=== PATIENT | male | born 1960 | race Caucasian/White ===

== ENCOUNTER 2025-01-08 10:40 | Emergency (ER) | payer OTHER, SELFPAY ==
[2025-01-08 11:00] VITALS: BP 169/127
--- NOTE | 2025-01-08 11:13 | ED.GENMED ---
History of Present Illness
General
Chief Complaint: Flank Pain
Source: patient and spouse
Time Seen by Provider: 01/08/25 11:07
History of Present Illness
History of Present Illness:
64-year-old male with past medical history of hyperlipidemia and previous kidney stones presenting to the emergency department for sudden onset of severe right-sided flank pain, nausea and vomiting that feels similar to previous episodes of kidney
stones, pain described to be right flank, constant, sharp, 10 out of 10. Did not take anything for symptoms prior to arrival. Denies any fevers, chills, rigors. Patient was scheduled to have lithotripsy for the last time he had a stone however
states the stone passed prior to the procedure and did not end up going through with the procedure.
Past History
Past History
ED Past Medical History: Hypercholesterolemia and Other (Kidney stones )
ED Past Surgical History: Orthopedic
Social History
Tobacco: Non-smoker
Alcohol: Occasional
Drug: None
Personal:
Living: with family
Review of Systems
Review of Systems
All Other Systems: ROS reviewed and negative except as documented in HPI and ROS
Phy Exam
Physical Exam
Physical Exam:
GENERAL: Alert , appears significantly uncomfortable, moaning, unable to stand up or lay flat
EYE: clear conjunctiva b/l
HEAD: NCAT
ENT: o/p clr, mmm.
CARDIAC: Regular rate and rhythm
LUNGS: Clear breath sounds bilaterally, no acute respiratory distress, no wheezes/rales/rhonchi
ABDOMEN: Soft, mild right flank tenderness, no r/t
NEUROLOGICAL: Alert and oriented
SKIN: Warm and dry, skin intact.
MUSCULOSKELETAL: well perfused.
PSYCH: Normal and appropriate interaction.
Scores
Heart Failure Risk
Heart Failure Risk Score: Not Applicable
Heart Score for Chest Pain Patients
STEMI patient?: Not applicable
Withdrawal Assessment of Alcohol
Withdrawal Assessment Completed?: Not applicable
Course
Orders/Labs/Results
Orders:
Orders
01/08/25 11:07
0.9% Sodium Chloride 1000 ml [Nss] 1,000 ml IV BOLUS
Ketorolac [Toradol] 30 mg IV NOW STA
Ondansetron Injectable [Zofran] 4 mg IV NOW STA
01/08/25 11:08
Ketorolac [Toradol] 30 mg .ROUTE .STK-MED ONE
Ondansetron Injectable [Zofran] 4 mg .ROUTE .STK-MED ONE
01/08/25 11:15
Complete Blood Count/With Diff Urgent
Comprehensive Metabolic Panel Urgent
Lipase Urgent
01/08/25 11:20
HYDROmorphone [Dilaudid] 1 mg IV NOW STA
01/08/25 11:21
CT Abd/pel Without Iv Or Oral Urgent
Comment:
Reason For Exam: sudden right flank pain, hx stones
01/08/25 12:00
HYDROmorphone [Dilaudid] 0.5 mg IV NOW STA
Abnormal Lab Results
01/08/25
11:15
MCH 31.9 H pg
(27.0-31.0)
Monocytes % 9.4 H %
(1.7-9.3)
Chloride 108 H mmol/L
(98-107)
BUN 26 H mg/dl
(9-20)
Glucose 130 H mg/dl
(70-99)
01/08/25 11:15
01/08/25 11:15
Vital Signs
Initial and Last Documented VS:
Initial Vital Signs
Temp Pulse Resp Pulse Ox
97.8 F 65 16 98
01/08/25 10:44 01/08/25 10:44 01/08/25 10:44 01/08/25 10:44
Last Documented Vital Signs
Temp Pulse Resp BP Pulse Ox
98.6 F 86 20 136/81 99
01/08/25 11:19 01/08/25 13:15 01/08/25 13:15 01/08/25 13:15 01/08/25 13:15
MDM/Problems Addressed
Differential Diagnosis Includes:
Renal/ureteral colic, dissection, urinary tract infection/pyelonephritis
MDM/Problems Addressed:
64-year-old male presenting to the ER for evaluation of sudden onset right-sided flank pain that began approximately 30 minutes prior to arrival to the emergency department. Symptoms feel exactly the same as previous kidney stone. Patient vomited
once on the way to the ER. Did not take any medications prior to arrival. Toradol Zofran and fluids ordered. Labs ordered. CT scan ordered.
*Radiology
Radiology exam reviewed: radiology read reviewed
*Pulse Oximetry
Patient hypoxic: no
*Critical Care Note
Total Time (30-74mins, 75-104mins- exclusive of procedures): Not Applicable
Patient Management
Escalation/DeEscalation of care consider admission/obs:
Patient CT scan does show a 3 mm right UVJ stone with hydroureter and mild hydronephrosis. Patient pain is much improved following IV medications and he does feel comfortable being discharged home. Patient aware of return precautions to the ER.
Prescriptions for Zofran, Flomax, Percocet and naproxen sent to pharmacy. Otherwise stable for discharge home.
ED Attending Note
-
Portions of this chart may have been created with voice recognition software.� Occasional wrong word or��sound alike� substitutions may have occurred due to the inherent limitations of voice recognition software.
Discharge Plan
Departure
Patient Disposition: Home (Routine Discharge)
Date of Disposition: 01/08/25
Time of Disposition: 12:58
Patient with high blood pressure during this ER visit?: No
Discharge Problem:
Ureterolithiasis
Instructions: Kidney Stones (DC)
Prescriptions:
New
tamsulosin [Flomax] 0.4 mg capsule
0.4 mg PO DAILY Qty: 10 0RF
ondansetron 4 mg tablet,disintegrating
4 mg PO TIDPRN PRN (Reason: nausea/vomiting) Qty: 10 0RF
naproxen 500 mg tablet
500 mg PO BID PRN (Reason: Pain) Qty: 15 0RF
oxycodone-acetaminophen [Percocet] 5-325 mg tablet
1 tab PO Q6HPRN PRN (Reason: pain) Qty: 8 0RF
Referrals:
Sanket Loomis MD [Family Provider] -
Interventions
Interventions:
*Risk Screen - Suicide Last Done: 01/08/25 10:44
*General Assessment Last Done: 01/08/25 11:19
*Neglect/Abuse Screening Last Done: 01/08/25 10:44
*ED- Fall Risk Assessment Last Done: 01/08/25 11:19
*ED COVID-19 Vaccine History Last Done: 01/08/25 11:19
*Nursing Disposition Last Done: 01/08/25 13:15
JY-Cjtftg-Tccqvtjfon Assessment Last Done: 01/08/25 11:19
ED-Male Genitourinary Assessment Last Done: 01/08/25 11:19
Discharge Date and Time
Discharge Date/Time: 01/08/25 13:19
Print Language: TANZANIAN
[2025-01-08] MEDS: NSS 1000 IV (11:18)
[2025-01-08] MEDS: ZOFRAN 4 MG IV (11:18)
[2025-01-08] MEDS: TORADOL 30 MG IV (11:18)
[2025-01-08 11:19] VITALS: BP 169/127; BMI 30.8
[2025-01-08 11:21] LABS: % Basophils 0.6 % (0-2); % Eosinophils 1.6 % (0-6); % Immature Granulocytes 0.4 % (0-0.5); % Monocytes 9.4 % (1.7-9.3); Absolute Eosinophils 0.1 10^3/uL (0-0.7); Absolute Lymphocytes 1.2 10^3/uL (1.2-3.4); Absolute Monocytes 0.5 10^3/uL (0.1-0.6); Absolute Neutrophils 3.2 10^3/uL (1.4-6.5); Hematocrit 44.4 % (39.0-52.0); Hemoglobin 15.4 g/dL (13.0-18.0); Mean Corp Hgb Conc. 34.7 g/dL (33.0-37.0); Mean Corpuscular Hgb 31.9 pg (27.0-31.0); Mean Corpuscular Volume 91.9 fL (80.0-94.0); Mean Platelet Volume 8.9 fL (7.4-10.4); Nucleated Red Blood Cells % 0 % (-); Platelet Count 212 10^3/uL (130-400); Red Blood Cell Count 4.83 10^6/uL (4.70-6.10); Red Cell Dist. Width 12.6 % (11.5-14.5)
[2025-01-08] MEDS: DILAUDID 1 MG IV (11:24)
[2025-01-08 11:32] VITALS: BP 140/85
[2025-01-08 11:38] LABS: ALT (SGPT) 24 U/L (0-50); AST (SGOT) 29 U/L (17-59); Albumin 4.3 g/dl (3.5-5.0); Alkaline Phosphatase 95 U/L (38-126); Blood Urea Nitrogen 26 mg/dl (9-20); Calcium 9.9 mg/dl (8.4-10.2); Carbon Dioxide 25 mmol/L (22-30); Chloride 108 mmol/L (98-107); Estimated Creatinine Clearance 85 ml/min; Glucose 130 mg/dl (70-99); Lipase 114 U/L (23-300); Potassium 4.1 mmol/L (3.5-5.1); Sodium 142 mmol/L (135-145); Total Protein 6.6 g/dl (6.3-8.2); eGFR > 60.00
[2025-01-08 12:00] VITALS: BP 145/72
[2025-01-08] MEDS: DILAUDID 0.5 MG IV (12:08)
[2025-01-08 13:15] VITALS: BP 136/81
== END 2025-01-08 13:19 | disposition home or self-care (01) ==
LOC: EMR 10:40
PROVIDERS: Physician Assistant Medical; EMERGENCY PHYSICIAN Emergency Medicine; FAMILY PHYSICIAN Family Medicine
DX: N20.1 Calculus of ureter (principal); E78.00 Pure hypercholesterolemia, unspecified; Z87.442 Personal history of urinary calculi
CPT/HCPCS: 99284; 74176; 80053; 83690; 85025